=== PATIENT | female | born 1990 | race Caucasian/White ===

== ENCOUNTER 2019-06-19 12:25 | Day surgery (SDC) | payer OTHER ==
[2019-06-17 10:53] VITALS: BMI 25.2
[2019-06-19] MEDS ORDERED: ONDANSETRON 4 MG/2 ML VIAL IVPUSH PRN (14:12)
[2019-06-19] MEDS ORDERED: LACTATED RINGERS SOLUTION 1,000 ML IV SCH (14:15)
[2019-06-19] MEDS ORDERED: MIDAZOLAM HCL 2 MG/2 ML SINGLE DOSE VIAL ONE (14:18)
[2019-06-19] MEDS ORDERED: ceFAZolin SODIUM 1 GM VIAL IVPB ONE (14:39)
[2019-06-19] MEDS ORDERED: BUPIVACAINE HCL/PF 0.5% (5 MG/ML) 30 ML VIAL IJ ONE ×5 (14:40→15:46)
[2019-06-19] MEDS ORDERED: metroNIDAZOLE 0.75% VAGINAL GEL 70 GM TUBE ONE (15:51)
[2019-06-19] MEDS ORDERED: BACITRACIN 15 GM TUBE TOPICAL OINTMENT ONE (15:57)
[2019-06-19] MEDS ORDERED: PROPOFOL 20 ML ONE (16:00)
[2019-06-19 17:58] VITALS: TEMP 98.5
[2019-06-19 18:49] VITALS: PULSE 73
[2019-06-19 18:50] VITALS: BP 110/63
[2019-06-19] MEDS ORDERED: METHIMAZOLE 10 MG TABLET (FP) PO SCH (22:00)
--- NOTE | 2019-06-20 12:32 | OP ---
DATE OF OPERATION: 06/19/2019 PREOPERATIVE DIAGNOSES: Status post delivery with episiotomy breakdown, rectocele, gaping introitus, no perineal body. POSTOPERATIVE DIAGNOSES: Status post delivery with episiotomy breakdown, rectocele, gaping introitus, no perineal body, no evidence of any retained external anal sphincter. PROCEDURE PERFORMED: An external anal sphincter repair, posterior colporrhaphy, rebuilding of the perineal body. DESCRIPTION OF PROCEDURE: After adequate anesthesia, patient was prepped and draped in the dorsal lithotomy position. Evaluation under anesthesia revealed a large gaping introitus, fairly large rectocele, no perineal body. A vertical incision made over the back wall of the vagina. The incision was made from the midline down to the introitus and then laterally to preserve as much vagina as possible. What was remaining of the fascia was very thin and, therefore, really was dissecting the rectum off the posterior vaginal wall. Once this was completed, the perirectal fascia laterally on both sides was then plicated into the middle in 4 individual layers of 0 running Vicryl. Of note, during inspection, there was no external anal sphincter noted. They were identified laterally using a Kumar clamp. There were plicated over the midline and sutured in 3 areas, distal, proximal, and superior. The suturing was in such a fashion so as the external anal sphincters on both sides crossed each other and then sutured in that area. Once this was completed, the perirectal fascia again was plicated over this. The perineal body was then reconstructed using 0 Vicryl suture in interrupted fashion using approximately 12 stitches individually. The superficial perineal muscle reapproximated in the midline without any tension. Rectal examination during the entire time was negative for any foreign bodies, and introital examination was always accommodating the surgeon's 2 fingers easily with no stenosis noted. Once this was completed, the back wall of the vagina was excised slightly as there was excess tissue from the rectocele and then closed using 2-0 Vicryl suture in continuous fashion down to the perineal body. The perineal body was then sutured using 2-0 Vicryl suture in continuous fashion. Approximately 8 interrupted sutures were placed on the perineal body. The perineal body now measured approximately 4-5 cm in length, now the vagina from the anus. Silvadene was placed on this area. I spoke with the postoperatively about the external anal sphincter not being present at the time and being repaired at this point. I told him about using ice packs and soaking and some narcotics and anti-inflammatory agents should she require as needed. SILVIO DURAN M.D. HERMILO/[id number]
== END 2019-06-19 20:05 | disposition home or self-care (01) ==
LOC: JASU-SURG 12:25
PROVIDERS: ATTEND Obstetrics & Gynecology Female Pelvic Medicine and Reconstructive Surgery
PROC: 0DQR0ZZ Repair Anal Sphincter, Open Approach (ICD-10-PCS; 2019-06-19)
PROC: 0JQC0ZZ Repair Pelvic Region Subcutaneous Tissue and Fascia, Open Approach (ICD-10-PCS; principal; 2019-06-19 14:00)
DX: O90.1 Disruption of perineal obstetric wound (principal); N81.6 Rectocele
CPT/HCPCS: 84703; 94760